=== PATIENT | male | born 1955 | race Caucasian/White ===

== ENCOUNTER 2023-12-13 22:10 | Inpatient (IN) | payer MEDICARE ==
[~2023-12-13] VITALS: Ht 172.7 cm; Wt 86.8 kg
[2023-12-13] MEDS ORDERED: ISOVUE-370 76% 100ML VIAL As Ordered ONE (23:04)
[2023-12-13 23:07] LABS: BASO # 0.1 10^3/uL (0.0-0.2); BASO % 0.9 % (0.0-1.0); EOS # 0.2 10^3/uL (0.0-0.5); EOS % 2.6 % (0.0-3.0); HEMATOCRIT 40.6 % (42.0-52.0); HEMOGLOBIN 13.6 g/dl (13.5-17.5); LYMPH # 3.3 10^3/uL (1.5-5.0); LYMPH % 36.9 % (24.0-44.0); MEAN CORPUSCULAR HEMOGLOBIN 28.5 pg (27.0-33.0); MEAN CORPUSCULAR HGB CONC 33.5 g/dl (32.0-36.5); MEAN CORPUSCULAR VOLUME 84.9 fl (80.0-96.0); MONO # 0.9 10^3/uL (0.0-0.8); MONO % 10.6 % (2.0-8.0); NEUTROPHILS # 4.3 10^3/uL (1.5-8.5); NEUTROPHILS % 48.8 % (36.0-66.0); PLATELET COUNT, AUTOMATED 253 10^3/uL (150-450); RED BLOOD COUNT 4.78 10^6/uL (4.30-6.10); WHITE BLOOD COUNT 8.9 10^3/uL (4.0-10.0)
[2023-12-13 23:19] LABS: INR 1.09; PROTHROMBIN TIME 13.8 SECONDS (12.5-14.5)
[2023-12-13 23:33] LABS: BLOOD UREA NITROGEN 18 MG/DL (9-23); CALCIUM LEVEL 9.1 MG/DL (8.3-10.6); CARBON DIOXIDE LEVEL 28 MMOL/L (20-31); CHLORIDE LEVEL 108 MMOL/L (98-107); CREATININE FOR GFR 1.14 MG/DL (0.70-1.30); GLOMERULAR FILTRATION RATE > 60.0 (>49); GLUCOSE, FASTING 93 MG/DL (74-106); POTASSIUM SERUM 3.6 MMOL/L (3.5-5.1); SODIUM LEVEL 141 MMOL/L (136-145)
[2023-12-13] MEDS: MECLIZINE 25 MG TABLET PO ONE (23:44)
[2023-12-14 01:58] VITALS: BP 169/93
[2023-12-14] MEDS: hydrALAZINE 20MG/ML 1ML VIAL IV ONE (01:58)
[2023-12-14] MEDS ORDERED: MOM 30ML SUSPENSION UDC PO PRN (04:10)
[2023-12-14] MEDS ORDERED: ACETAMINOPHEN TAB 650MG DOSE (2X325MG) PO PRN (04:10)
[2023-12-14] MEDS ORDERED: SILD100T7 PO (04:26)
[2023-12-14] MEDS ORDERED: HOME MED LIST COMPLETE! XX SCH (04:30)
[2023-12-14 07:24] LABS: HEMATOCRIT 47.1 % (42.0-52.0); HEMOGLOBIN 15.1 g/dl (13.5-17.5); MEAN CORPUSCULAR HGB CONC 32.1 g/dl (32.0-36.5); MEAN CORPUSCULAR VOLUME 87.4 fl (80.0-96.0); PLATELET COUNT, AUTOMATED 259 10^3/uL (150-450); RED BLOOD COUNT 5.39 10^6/uL (4.30-6.10); WHITE BLOOD COUNT 8.3 10^3/uL (4.0-10.0)
[2023-12-14] MEDS: ENOXAPARIN 40MG/0.4ML SYRINGE (J1650 PER 10MG) SC SCH (07:46)
[2023-12-14] MEDS: ASPIRIN 325 MG TAB PO SCH (07:46)
[2023-12-14] MEDS: ATORVASTATIN 20 MG TAB PO SCH (07:46)
[2023-12-14 07:57] LABS: ALBUMIN 4.1 G/DL (3.2-5.2); ALKALINE PHOSPHATASE 76 U/L (46-116); ALT/SGPT 18 U/L (7.0-40); AST/SGOT 21 U/L (<34); BILIRUBIN,TOTAL 0.6 MG/DL (0.3-1.2); BLOOD UREA NITROGEN 15 MG/DL (9-23); CALCIUM LEVEL 9.1 MG/DL (8.3-10.6); CHLORIDE LEVEL 107 MMOL/L (98-107); CHOLESTEROL LEVEL 281 MG/DL (<200); CHOLESTEROL RISK RATIO 6.16 (<5); CREATININE FOR GFR 0.93 MG/DL (0.70-1.30); GLOMERULAR FILTRATION RATE > 60.0 (>49); GLUCOSE, FASTING 93 MG/DL (74-106); HDL CHOLESTEROL 45.6 MG/DL (>40); LDL CHOLESTEROL 184.2 MG/DL (<100); NON-HDL-C 235.4 MG/DL; POTASSIUM SERUM 4.1 MMOL/L (3.5-5.1); SODIUM LEVEL 137 MMOL/L (136-145); TOTAL PROTEIN 7.4 G/DL (5.7-8.2); TRIGLYCERIDES LEVEL 256 MG/DL (<150)
[2023-12-14 08:16] LABS: CARBON DIOXIDE LEVEL 23 MMOL/L (20-31)
[2023-12-14 08:48] LABS: HEMOGLOBIN A1c 5.5 % (4.0-6.0)
[2023-12-14 16:19] VITALS: BP 162/90; TEMP 97.9; O2SAT 99
[2023-12-14 19:08] VITALS: BP 142/83; TEMP 98.9; O2SAT 98
[2023-12-14 20:42] VITALS: BP 131/75; TEMP 98.5; O2SAT 97
[2023-12-14 23:44] VITALS: BP 124/73; TEMP 97.4; O2SAT 96
[2023-12-15 04:23] VITALS: BP 141/61; TEMP 96.9; O2SAT 96
[2023-12-15 07:40] VITALS: BP 142/92; TEMP 98; O2SAT 98
[2023-12-15] MEDS ORDERED: ATROPINE SULF 1MG/10ML SYRINGE As Ordered ONE (08:06)
[2023-12-15] MEDS ORDERED: ATROPINE SULF 1MG/10ML SYRINGE IV PRN (08:10)
[2023-12-15] MEDS: CLOPIDOGREL 75 MG TAB PO SCH (08:52)
[2023-12-15] MEDS: ASPIRIN 81MG ENTERIC TABLET PO SCH (08:52)
[2023-12-15] MEDS ORDERED: ATOR1TAB21 PO (10:21)
[2023-12-15] MEDS ORDERED: CLOP75TA2 PO (10:21)
[2023-12-15] MEDS ORDERED: ASPI81TAEC PO (10:21)
[2023-12-15] MEDS ORDERED: ATORVASTATIN 20 MG TAB PO SCH (21:00)
== END 2023-12-15 11:10 | disposition home or self-care (01) | DRG 66 ==
LOC: M ED 22:10 → M ED INP 12-14 04:06 → M PCU 12-14 16:03
PROVIDERS: ADMIT Preventive Medicine Undersea and Hyperbaric Medicine; ATTEND General Practice
PROC: B246ZZZ Ultrasonography of Right and Left Heart (ICD-10-PCS; principal; 2023-12-14)
DX: I63.81 Other cerebral infarction due to occlusion or stenosis of small artery (principal); I10 Essential (primary) hypertension; R20.0 Anesthesia of skin; I67.82 Cerebral ischemia; N52.9 Male erectile dysfunction, unspecified; Z90.49 Acquired absence of other specified parts of digestive tract; Z79.899 Other long term (current) drug therapy